=== PATIENT | male | born 1965 | race Two or more races ===

== ENCOUNTER 2021-12-21 04:26 | Inpatient (IN) | payer OTHER ==
[2021-12-21] VITALS (35 sets, daily range): BP systolic 110–167; BP diastolic 59–143
[~2021-12-21] VITALS: Ht 175.3 cm; Wt 76.2 kg
[2021-12-21] MEDS ORDERED: MORPHINE SULFATE 4 MG/ML CPJ (NOT FOR IM USE) IV STA (04:40)
[2021-12-21] MEDS ORDERED: ONDANSETRON HCL 4MG/2ML INJ IV STA (04:40)
[2021-12-21] MEDS ORDERED: ASPIRIN 81MG TABLET PO ONE ×2 (04:45→05:00)
[2021-12-21] MEDS: NITROGLYCERIN 0.4MG TABLET SL SL PRN ×3 (04:53→05:09)
[2021-12-21 04:59] LABS: BASOPHILS % 0.4 % (0.0-2.0); EOSINOPHILS % 0.5 % (0.0-5.0); HEMOGLOBIN. 15.8 g/dL (14.0-18.0); LYMPHOCYTES % 19.2 % (20.0-50.0); MEAN CORPUSCULAR HEMOGLOBIN 21.6 pg (28.0-32.0); MEAN CORPUSCULAR VOLUME 66.8 fL (80.0-94.0); MEAN PLATELET VOLUME 7.8 fl (7.4-10.4); MONOCYTES % 6.1 % (2.0-8.0); NEUTROPHILS % 73.8 % (40.0-76.0); PLATELET 241 x1000/uL (130-400); RED BLOOD CELL COUNT 7.33 mill/uL (4.7-6.1)
[2021-12-21] MEDS ORDERED: HEPARIN 25,000 UNITS PREMIX 250 ML IV PRN (05:00)
[2021-12-21] MEDS ORDERED: HEPARIN 5000 UNITS/ML VIAL IV SCH (05:00)
[2021-12-21 05:06] LABS: CHLORIDE 104 mEq/L (98-107)
[2021-12-21 05:11] LABS: ETHANOL BLOOD < 10 mg/dL
[2021-12-21] MEDS ORDERED: SODIUM CHLORIDE 0.9% 1,000 ML IV ONE (05:15)
[2021-12-21] MEDS ORDERED: MORPHINE SULFATE 4 MG/ML CPJ (NOT FOR IM USE) IV ONE (05:15)
[2021-12-21] MEDS ORDERED: VERAPAMIL HCL 2.5 MG/1 ML 2ML VIAL IV ONE (05:28)
[2021-12-21] MEDS ORDERED: LIDOCAINE HCL 1% 20ML VIAL (Pyxis) INJ ONE (05:29)
[2021-12-21] MEDS ORDERED: IODIXANOL 320MG/ML 100 ML BOTTLE IV ONE ×2 (05:29→06:11)
[2021-12-21] MEDS ORDERED: IOHEXOL-300 100 ML BOTTLE ONE (05:29)
[2021-12-21 05:34] LABS: INR 0.9; PARTIAL THROMBOPLASTIN TIME 25.6 sec (23.4-31.0)
[2021-12-21 05:38] LABS: PLATELET ESTIMATE NORMAL
[2021-12-21] MEDS ORDERED: FENTANYL CITRATE/PF 50MCG/ML 2ML VIAL ONE (05:43)
[2021-12-21] MEDS ORDERED: MIDAZOLAM HCL 2 MG/2 ML VIAL ONE (05:43)
[2021-12-21] MEDS ORDERED: TICAGRELOR 90 MG TABLET PO ONE (06:18)
[2021-12-21] MEDS ORDERED: SODIUM CHLORIDE 0.45% 1,000 ML IV ONE (06:30)
[2021-12-21] MEDS ORDERED: MORPHINE SULFATE 2 MG/ML CPJ (NOT FOR IM USE) IV PRN (06:30)
[2021-12-21] MEDS ORDERED: ONDANSETRON HCL 4MG/2ML INJ IV PRN (06:30)
[2021-12-21] MEDS ORDERED: ATROPINE SULFATE 1MG/10ML SYR IV PRN (06:30)
[2021-12-21] MEDS ORDERED: NALOXONE HCL 0.4MG/ML VIAL IV PRN (06:45)
[2021-12-21] MEDS ORDERED: HYDRALAZINE 20MG/ML VIAL IV PRN (08:30)
[2021-12-21] MEDS ORDERED: CLONIDINE 0.1MG TABLET PO PRN (08:30)
[2021-12-21] MEDS: CARVEDILOL 3.125 MG TABLET PO SCH ×2 (08:33→20:37)
[2021-12-21] MEDS ORDERED: NITROGLYCERIN 0.4MG TABLET SL SL PRN (09:00)
[2021-12-21] MEDS ORDERED: ASPIRIN 325MG TABLET PO SCH (09:00)
[2021-12-21] MEDS ORDERED: NITROGLYCERIN 50MCG/ML 10ML VIAL (CATH LAB) IV ONE (09:05)
[2021-12-21] MEDS ORDERED: NICARDIPINE 100MCG/ML 10ML VIAL (CATH LAB) IV ONE (09:05)
[2021-12-21] MEDS ORDERED: HEPARIN 1000 UNITS/ML 10ML ONE (09:05)
[2021-12-21] MEDS: AMLODIPINE 10MG TABLET PO SCH (09:45)
[2021-12-21] MEDS: ATORVASTATIN CALCIUM 40MG TABLET PO SCH (20:37)
[2021-12-21] MEDS: ACETAMINOPHEN 325MG TABLET PO PRN (20:39)
[2021-12-21] MEDS: TICAGRELOR 90 MG TABLET PO SCH (20:42)
[2021-12-22] VITALS (28 sets, daily range): BP systolic 95–124; BP diastolic 46–80
[2021-12-22 06:16] LABS: BASOPHILS % 0.3 % (0.0-2.0); EOSINOPHILS % 0.3 % (0.0-5.0); HEMATOCRIT. 42.1 % (42.0-52.0); HEMOGLOBIN. 14.1 g/dL (14.0-18.0); LYMPHOCYTES % 15.6 % (20.0-50.0); MEAN CORPUSCULAR HEMOGLOBIN 22.4 pg (28.0-32.0); MEAN PLATELET VOLUME 7.9 fl (7.4-10.4); MONOCYTES % 11.9 % (2.0-8.0); NEUTROPHILS % 71.9 % (40.0-76.0); PLATELET 199 x1000/uL (130-400); RED BLOOD CELL COUNT 6.27 mill/uL (4.7-6.1); RED CELL DISTRIBUTION WIDTH 15.9 % (11.6-14.6)
[2021-12-22 06:22] LABS: CHLORIDE 104 mEq/L (98-107)
[2021-12-22] MEDS: ASPIRIN 81MG TABLET PO SCH (08:09)
[2021-12-22] MEDS: TICAGRELOR 90 MG TABLET PO SCH ×2 (08:09→20:57)
[2021-12-22] MEDS: AMLODIPINE 10MG TABLET PO SCH (08:09)
[2021-12-22] MEDS: CARVEDILOL 3.125 MG TABLET PO SCH ×2 (08:10→22:00)
[2021-12-22] MEDS: ACETAMINOPHEN 325MG TABLET PO PRN (19:41)
[2021-12-22] MEDS: ATORVASTATIN CALCIUM 40MG TABLET PO SCH (20:57)
[2021-12-22] MEDS ORDERED: FAMOTIDINE 20MG TABLET PO SCH (21:00)
[2021-12-23] VITALS (17 sets, daily range): BP systolic 92–120; BP diastolic 46–77
[2021-12-23 07:06] LABS: BASOPHILS % 0.3 % (0.0-2.0); EOSINOPHILS % 0.7 % (0.0-5.0); HEMATOCRIT. 44.7 % (42.0-52.0); HEMOGLOBIN. 14.1 g/dL (14.0-18.0); MEAN CORPUSCULAR HEMOGLOBIN 21.3 pg (28.0-32.0); MEAN CORPUSCULAR VOLUME 67.4 fL (80.0-94.0); MEAN PLATELET VOLUME 8.5 fl (7.4-10.4); MONOCYTES % 12.8 % (2.0-8.0); NEUTROPHILS % 67.2 % (40.0-76.0); PLATELET 216 x1000/uL (130-400); RED BLOOD CELL COUNT 6.63 mill/uL (4.7-6.1); RED CELL DISTRIBUTION WIDTH 15.6 % (11.6-14.6)
[2021-12-23 07:11] LABS: CHLORIDE 103 mEq/L (98-107)
[2021-12-23] MEDS: ASPIRIN 81MG TABLET PO SCH (09:17)
[2021-12-23] MEDS: TICAGRELOR 90 MG TABLET PO SCH (09:17)
[2021-12-23] MEDS: AMLODIPINE 10MG TABLET PO SCH (09:18)
[2021-12-23] MEDS: CARVEDILOL 3.125 MG TABLET PO SCH (09:19)
[2021-12-23] MEDS ORDERED: LIP40 PO (11:27)
[2021-12-23] MEDS ORDERED: AMLO10TA80 PO (11:27)
[2021-12-23] MEDS ORDERED: ASPI-1406 MT (11:27)
[2021-12-23] MEDS ORDERED: TICA90TA PO (11:27)
== END 2021-12-23 13:05 | disposition home or self-care (01) | DRG 247 ==
LOC: ER 04:26 → MICUSO 04:52 → CVICU 06:29
PROVIDERS: ADMIT Internal Medicine; ATTEND Internal Medicine
PROC: 027035Z Dilation of Coronary Artery, One Artery with Two Drug-eluting Intraluminal Devices, Percutaneous Approach (ICD-10-PCS; principal; 2021-12-21)
PROC: 02C03ZZ Extirpation of Matter from Coronary Artery, One Artery, Percutaneous Approach (ICD-10-PCS; 2021-12-21)
PROC: 4A023N7 Measurement of Cardiac Sampling and Pressure, Left Heart, Percutaneous Approach (ICD-10-PCS; 2021-12-21)
PROC: B2111ZZ Fluoroscopy of Multiple Coronary Arteries using Low Osmolar Contrast (ICD-10-PCS; 2021-12-21)
PROC: B2151ZZ Fluoroscopy of Left Heart using Low Osmolar Contrast (ICD-10-PCS; 2021-12-21)
DX: I21.3 ST elevation (STEMI) myocardial infarction of unspecified site (principal); E87.1 Hypo-osmolality and hyponatremia; E78.5 Hyperlipidemia, unspecified; I10 Essential (primary) hypertension; Z20.822 Contact with and (suspected) exposure to COVID-19; I25.10 Atherosclerotic heart disease of native coronary artery without angina pectoris; Z87.891 Personal history of nicotine dependence
CPT/HCPCS: 36415; 71045; 80048; 80053; 80061; 80320; 82962; 83880; 84484; 85025; 85347; 87426; 92941; 93005; 93306; 93458; 93970; 99291; C1757; C1769; C1874; C1887; C1893; J1644; J2250; J2270; J2405; J3010; J3490; J7030; J7040; Q9967; G0480; J8499